=== PATIENT | female | born 1945 | race Caucasian/White ===

== ENCOUNTER → 2021-02-07 | Outpatient (CLI) | payer OTHER ==
--- NOTE | 2021-02-07 13:28 | 2DMMODE ---
[place] [address] 2 D/M-MODE ECHOCARDIOGRAM Name: LINDSEY MEI Room: [facility]#: [id number] Admission: 02/07/21 Attend Phys: Yasmine Kulkarni MD Discharge: Date of : 47 Date of Service: 02/07/21 1327 Report #: [id number] THIS REPORT FOR: cc: Yasmine Kulkarni MD, Lin W. MD Liston, Michael J. MD MERGED WITH [facility] ~ APPROVED REPORT Study performed: 02/07/2021 11:48:25 EXAM: Comprehensive 2D, Doppler, and color-flow Echocardiogram Patient Location: Out-Patient BSA: 1.64 HR: 72 bpm BP: 145/78 mmHg Other Information Study Quality: Good Indications Murmur 2D Dimensions IVSd: 10.75 (7-11mm) LVOT Diam: 19.70 (18-24mm) LVDd: 47.34 mm PWd: 10.36 (7-11mm) Ascending Ao: 34.53 (22-36mm) LVDs: 27.66 (25-40mm) Aortic Root: 29.40 mm Volumes Left Atrial Volume (Systole) LA ESV Index: 20.70 mL/m2 Aortic Valve AoV Peak Antwon.: 1.39 m/s AO Peak Gr.: 7.77 mmHg LVOT Max P.12 mmHg AO Mean Gr.: 3.90 mmHg LVOT Mean P.50 mmHg LVOT Max V: 1.43 m/s AO V2 VTI: 30.54 cm LVOT Mean V: 0.84 m/s ALEKSANDAR (VTI): 3.28 cm2 LVOT V1 VTI: 32.90 cm Mitral Valve E/A Ratio: 0.71 [place] [address] 2 D/M-MODE ECHOCARDIOGRAM Name: LINDSEY MEI Room: [facility]#: [id number] Admission: 02/07/21 Attend Phys: Yasmine Kulkarni MD Discharge: Date of : 47 Date of Service: 02/07/21 1327 Report #: [id number] MV Decel. Time: 151.25 ms MV E Max Antwon.: 0.65 m/s MV PHT: 43.86 ms MVA (PHT): 5.02 cm2 TDI E/Lateral E': 5.00 E/Medial E': 6.50 Medial E' Antwon.: 0.10 m/s Lateral E' Antwon.: 0.13 m/s Pulmonary Valve PV Peak Antwon.: 1.11 m/s PV Peak Gr.: 4.92 mmHg Tricuspid Valve RAP Estimate: 5.00 mmHg TR Peak Gr.: 24.87 mmHg RVSP: 29.87 mmHg PA Pressure: 29.87 mmHg Left Ventricle The left ventricle is normal size. There is normal LV segmental wall motion. There is normal left ventricular wall thickness. Left ventricular systolic function is normal. LVEF is 60-65%. Grade I - abnormal relaxation pattern. Right Ventricle The right ventricle is normal size. The right ventricular systolic function is normal. Atria The left atrium size is normal. The right atrium size is normal. Aortic Valve The aortic valve is normal in structure. No aortic regurgitation is present. There is no aortic valvular stenosis. Mitral Valve The mitral valve is normal in structure. Mild mitral regurgitation. No evidence of mitral valve stenosis. Tricuspid Valve The tricuspid valve is normal in structure. Mild tricuspid regurgitation. The RVSP is 35-40 mmHg. Pulmonic Valve The pulmonary valve is normal in structure. There [place] [address] 2 D/M-MODE ECHOCARDIOGRAM Name: LINDSEY MEI Room: [facility]#: [id number] Admission: 02/07/21 Attend Phys: Yasmine Kulkarni MD Discharge: Date of : 47 Date of Service: 02/07/21 1327 Report #: [id number] valvular regurgitation. Great Vessels The aortic root is normal in size. IVC is normal in size and collapses >50% with inspiration. Pericardium There is no pericardial effusion. <Conclusion> The left ventricle is normal size. There is normal left ventricular wall thickness. Left ventricular systolic function is normal. LVEF is 60-65%. Grade I - abnormal relaxation pattern. There is normal LV segmental wall motion. Mild mitral regurgitation. Mild tricuspid regurgitation. The RVSP is 35-40 mmHg. IVC is normal in size and collapses >50% with inspiration. <ELECTRONICALLY SIGNED> By: Sim Lowery MD, FACC 02/07/21 1327 26 26 Sim Lowery MD, FACC /INF
== END ==
LOC: M.CRD 10:32
PROVIDERS: ATTEND Internal Medicine
DX: I08.1 Rheumatic disorders of both mitral and tricuspid valves (principal); R01.1 Cardiac murmur, unspecified; I73.9 Peripheral vascular disease, unspecified